=== PATIENT | female | born 1985 | race Caucasian/White ===

== ENCOUNTER → 2016-05-31 | Outpatient (CLI) | payer OTHER ==
[~2016-05-31] MED LIST: ANAPROX DS550 MG PO; ATARAX,VISTARIL50 MG PO; AUGMENTIN 875 M1 TAB PO; BACTRIM DS 8001 TA1 PO; CARBIDOPA/LEVOD1 TA1 PO; CELEXA20 MG PO; CELEXA40 MG PO; CLARITIN10 MG PO; MAXALT10 MG PO; METHOCARBAMOL750 M1 PO; MOTRIN800 MG PO; Motrin,Rufen800 MG PO; NAPROSYN500 MG PO; NKHM; Orphenadrine C100 MG PO; PREDNISONE20 M1 PO; QUETIAPINE FUMA25 MG PO; ROBAXIN750 MG PO; SEROQUEL50 MG PO; THERA TABS1 TAB PO; TOBRADEX 0.1%-0.5 ML OPH; TOPAMAX100 M1 PO; TRAMADOL HCL50 MG PO; TRAZODONE50 MG PO; TRINESSA 281 TAB PO; ULTRAM50 MG PO; VICODIN 5/500 505 MG PO; ZANTAC150 MG PO; ZOFRAN ODT4 MG SL; ZOFRAN4 MG PO
[2016-05-31 12:29] LABS: BASO % 0.3 % (0.0-1.0); EOS # 0.6 10*3/uL (0.0-0.4); HEMOGLOBIN 10.9 g/dl (12.0-16.0); IG # 0.1 10*3/uL (0.0-0.1); LYMPH # 1.8 10*3/uL (1.3-4.4); LYMPH % 12.9 % (27.0-41.0); MEAN CELL VOLUME 95.5 fl (81.0-99.0); MEAN CORPUSCULAR HGB 34.7 pg (27.0-31.0); MEAN CORPUSCULAR HGB CONC 36.3 g/dl (33.0-37.0); MEAN PLATELET VOLUME 9.4 fl (9.6-12.3); MONO # 0.9 10*3/uL (0.1-1.0); MONO % 6.4 % (3.0-9.0); NEUT # 10.3 10*3/uL (2.3-7.9); NEUT % 75.4 % (47.0-73.0); PLATELET COUNT AUTOMATED 206 10*3/uL (130-400); RED BLOOD COUNT 3.14 10*6/uL (4.10-5.10); RED CELL DISTRI WIDTH 12.8 % (0-14.5); WHITE BLOOD COUNT 13.6 10*3/uL (4.8-10.8)
[2016-06-01 08:14] LABS: HIV 1+2 AB + HIV1 P24 AG Non Reactive (Non Reactive)
== END | disposition home or self-care (01) ==
LOC: LAB 12:00
PROVIDERS: Obstetrics & Gynecology
DX: Z34.90 Encounter for supervision of normal pregnancy, unspecified, unspecified trimester (principal); Z3A.00 Weeks of gestation of pregnancy not specified

== ENCOUNTER → 2016-07-05 | Outpatient (CLI) | payer OTHER | END | disposition home or self-care (01) | LOC: US 15:57 | DX: O32.8XX0 Maternal care for other malpresentation of fetus, not applicable or unspecified (principal); Z3A.34 34 weeks gestation of pregnancy ==

== ENCOUNTER 2016-08-03 18:55 | Emergency (ER) | payer OTHER ==
[~2016-08-03] VITALS: Ht 165.1 cm; Wt 71.7 kg
[2016-08-03] MEDS ORDERED: PRENATAL1 TA3 PO (19:17)
== END 2016-08-03 20:12 | disposition left against medical advice (07) ==
LOC: ED 18:55
DX: O26.893 Other specified pregnancy related conditions, third trimester (principal); O60.03 Preterm labor without delivery, third trimester; Z3A.38 38 weeks gestation of pregnancy; F17.200 Nicotine dependence, unspecified, uncomplicated

== ENCOUNTER 2016-11-28 20:01 | Emergency (ER) | payer OTHER ==
[~2016-11-28] VITALS: Ht 165.1 cm; Wt 61.2 kg
[~2016-11-28 20:01] MED LIST changes: +PRENATAL1 TA3 PO
== END 2016-11-28 21:59 | disposition home or self-care (01) ==
LOC: ED 20:01
DX: R51 Headache (principal); F17.200 Nicotine dependence, unspecified, uncomplicated; G43.909 Migraine, unspecified, not intractable, without status migrainosus; F11.10 Opioid abuse, uncomplicated; Z79.899 Other long term (current) drug therapy

== ENCOUNTER 2020-02-14 20:01 | Emergency (ER) | payer OTHER ==
[~2020-02-14] VITALS: Ht 165.1 cm; Wt 64.9 kg
== END 2020-02-14 21:11 | disposition left against medical advice (07) ==
LOC: ED 20:01
DX: T65.91XA Toxic effect of unspecified substance, accidental (unintentional), initial encounter (principal); Z79.899 Other long term (current) drug therapy; Y92.89 Other specified places as the place of occurrence of the external cause

== ENCOUNTER 2022-06-28 13:35 | Emergency (ER) | payer MEDICAID ==
[~2022-06-28] VITALS: Ht 165.1 cm
[2022-06-28] MEDS ORDERED: AMOX-CLAV 875-1 EACH PO (16:52)
== END 2022-06-28 17:00 | disposition home or self-care (01) ==
LOC: ED 13:35
DX: H66.92 Otitis media, unspecified, left ear (principal); Z79.899 Other long term (current) drug therapy; F17.200 Nicotine dependence, unspecified, uncomplicated

== ENCOUNTER 2022-07-29 12:36 | Emergency (ER) | payer MEDICAID ==
[~2022-07-29] VITALS: Ht 165.1 cm; Wt 59.9 kg
[~2022-07-29 12:36] MED LIST changes: +AMOX-CLAV 875-1 EACH PO
[2022-07-29] MEDS ORDERED: METHOCARBAMOL500 M1 PO ×2 (14:39→14:42)
[2022-07-29] MEDS ORDERED: PREDNISONE20 M1 PO ×2 (14:39→14:42)
[2022-07-29] MEDS ORDERED: HYDROCODONE-AC1 EAC1 PO ×2 (14:39→14:42)
== END 2022-07-29 16:28 | disposition home or self-care (01) ==
LOC: ED 12:36
DX: S13.9XXA Sprain of joints and ligaments of unspecified parts of neck, initial encounter (principal); F17.200 Nicotine dependence, unspecified, uncomplicated; F11.10 Opioid abuse, uncomplicated; X50.1XXA Overexertion from prolonged static or awkward postures, initial encounter; Y93.89 Activity, other specified; Y92.89 Other specified places as the place of occurrence of the external cause; Y99.8 Other external cause status

== ENCOUNTER 2022-09-30 10:56 | Emergency (ER) | payer MEDICAID ==
[~2022-09-30] VITALS: Ht 165.1 cm; Wt 62.6 kg
[~2022-09-30 10:56] MED LIST changes: +HYDROCODONE-AC1 EAC1 PO; +METHOCARBAMOL500 M1 PO
[2022-09-30] MEDS ORDERED: PREDNISONE50 MG PO (12:09)
== END 2022-09-30 12:22 | disposition home or self-care (01) ==
LOC: ED 10:56
DX: M54.40 Lumbago with sciatica, unspecified side (principal); F17.200 Nicotine dependence, unspecified, uncomplicated

== ENCOUNTER 2022-12-10 22:33 | Emergency (ER) | payer SELFPAY ==
[~2022-12-10] VITALS: Ht 165.1 cm; Wt 63.5 kg
[~2022-12-10 22:33] MED LIST changes: +PENICILLIN VK500 MG PO; +PREDNISONE50 MG PO
== END 2022-12-11 02:06 | disposition left against medical advice (07) ==
LOC: ED 22:33
DX: K08.89 Other specified disorders of teeth and supporting structures (principal); Z98.890 Other specified postprocedural states; F11.10 Opioid abuse, uncomplicated; F17.290 Nicotine dependence, other tobacco product, uncomplicated

== ENCOUNTER 2023-01-20 22:45 | Emergency (ER) | payer MEDICAID ==
[~2023-01-20] VITALS: Ht 165.1 cm; Wt 65.3 kg
[2023-01-20] MEDS ORDERED: COLACE CLEAR50 MG PO (23:00)
[2023-01-20] MEDS ORDERED: SUBOXONE 8 MG-1 EACH SL (23:00)
[2023-01-20] MEDS ORDERED: CYCLOBENZAPRINE10 MG PO (23:01)
[2023-01-20] MEDS ORDERED: CLONIDINE HCL0.1 MG PO (23:01)
[2023-01-20 23:22] LABS: BASO # 0.1 10*3/uL (0.0-0.1); BASO % 0.7 % (0.0-1.0); EOS # 1.2 10*3/uL (0.0-0.4); EOS % 10.3 % (1.0-4.0); HEMATOCRIT 36.8 % (37.0-47.0); LYMPH # 2.9 10*3/uL (1.3-4.4); LYMPH % 25.1 % (27.0-41.0); MEAN CELL VOLUME 91.1 fl (81.0-99.0); MEAN CORPUSCULAR HGB 31.7 pg (27.0-31.0); MEAN CORPUSCULAR HGB CONC 34.8 g/dl (33.0-37.0); MEAN PLATELET VOLUME 10.2 fl (9.6-12.3); MONO # 1.2 10*3/uL (0.1-1.0); MONO % 10.1 % (3.0-9.0); NEUT # 6.3 10*3/uL (2.3-7.9); NEUT % 53.6 % (47.0-73.0); PLATELET COUNT AUTOMATED 352 10*3/uL (130-400); RED BLOOD COUNT 4.04 10*6/uL (4.10-5.10); RED CELL DISTRI WIDTH 13.1 % (0-14.5); WHITE BLOOD COUNT 11.6 10*3/uL (4.8-10.8)
[2023-01-20 23:47] LABS: ALKALINE PHOSPHATASE 79 U/L (46-116); BUN 13 mg/dl (9-23); CHLORIDE 104 mmol/L (98-107); SGPT/ALT 18 U/L (5-49)
[2023-01-21] MEDS ORDERED: OMEPRAZOLE40 MG PO (00:20)
== END 2023-01-21 00:19 | disposition left against medical advice (07) ==
LOC: ED 22:45
PROVIDERS: Internal Medicine
DX: K21.9 Gastro-esophageal reflux disease without esophagitis (principal); R07.89 Other chest pain; Z98.890 Other specified postprocedural states; F17.200 Nicotine dependence, unspecified, uncomplicated; F11.10 Opioid abuse, uncomplicated

== ENCOUNTER 2023-04-12 11:03 | Emergency (ER) | payer MEDICAID ==
[~2023-04-12] VITALS: Ht 165.1 cm; Wt 59.0 kg
[~2023-04-12 11:03] MED LIST changes: +CLONIDINE HCL0.1 MG PO; +COLACE CLEAR50 MG PO; +CYCLOBENZAPRINE10 MG PO; +OMEPRAZOLE40 MG PO; +SUBOXONE 8 MG-1 EACH SL
[2023-04-12] MEDS ORDERED: CYCLOBENZAPRINE5 M3 PO (11:22)
[2023-04-12] MEDS ORDERED: methylPREDNISolone sod succ 125 MG VIAL IM ONE (11:25)
[2023-04-12] MEDS ORDERED: Ketorolac Tromethamine 30 MG/ML VIAL IM ONE (11:25)
== END 2023-04-12 11:37 | disposition home or self-care (01) ==
LOC: ED 11:03
DX: S16.1XXA Strain of muscle, fascia and tendon at neck level, initial encounter (principal); F17.200 Nicotine dependence, unspecified, uncomplicated; F11.10 Opioid abuse, uncomplicated; Z98.890 Other specified postprocedural states; X58.XXXA Exposure to other specified factors, initial encounter; Y93.E9 Activity, other interior property and clothing maintenance; Y92.009 Unspecified place in unspecified non-institutional (private) residence as the place of occurrence of the external cause; Y99.8 Other external cause status

== ENCOUNTER → 2023-05-30 | Emergency (ER) | payer MEDICAID ==
[~2023-05-30] VITALS: Ht 165.1 cm; Wt 60.3 kg
[~2023-05-30] MED LIST changes: +CYCLOBENZAPRINE5 M3 PO; +Rabies Immune Globulin 300 UNIT/2 ML VIAL IM ONE; +Rabies Vaccine 1 ML VIAL IM ONE; +Tdap Vaccine 0.5 ML SYR (Adult Vaccine) IM ONE
== END ==
LOC: ED 10:08
DX: S81.852A Open bite, left lower leg, initial encounter (principal); F17.200 Nicotine dependence, unspecified, uncomplicated; F11.10 Opioid abuse, uncomplicated; W54.0XXA Bitten by dog, initial encounter; Y93.89 Activity, other specified; Y92.89 Other specified places as the place of occurrence of the external cause; Y99.8 Other external cause status

== ENCOUNTER 2023-06-02 16:30 | Emergency (ER) | payer MEDICAID ==
[~2023-06-02 16:30] MED LIST changes: -Rabies Immune Globulin 300 UNIT/2 ML VIAL IM ONE; -Rabies Vaccine 1 ML VIAL IM ONE; -Tdap Vaccine 0.5 ML SYR (Adult Vaccine) IM ONE
[2023-06-02] MEDS ORDERED: Rabies Vaccine 1 ML VIAL IM ONE (16:45)
== END 2023-06-02 17:22 | disposition home or self-care (01) ==
LOC: ED 16:30
DX: S81.852D Open bite, left lower leg, subsequent encounter (principal); Z23 Encounter for immunization; F17.200 Nicotine dependence, unspecified, uncomplicated; Z79.2 Long term (current) use of antibiotics; Z79.899 Other long term (current) drug therapy; W54.0XXD Bitten by dog, subsequent encounter

== ENCOUNTER 2023-06-06 17:25 | Emergency (ER) | payer MEDICAID ==
[~2023-06-06] VITALS: Ht 165.1 cm; Wt 61.2 kg
[2023-06-06] MEDS ORDERED: Rabies Vaccine 1 ML VIAL IM ONE (18:05)
== END 2023-06-06 18:22 | disposition home or self-care (01) ==
LOC: ED 17:25
DX: S81.851D Open bite, right lower leg, subsequent encounter (principal); F17.200 Nicotine dependence, unspecified, uncomplicated; F11.10 Opioid abuse, uncomplicated; W54.0XXD Bitten by dog, subsequent encounter

== ENCOUNTER 2023-07-29 21:34 | Emergency (ER) | payer MEDICAID ==
[~2023-07-29] VITALS: Ht 165.1 cm; Wt 61.2 kg
[2023-07-29] MEDS ORDERED: Dexamethasone Sodium Phospha 20 MG/5 ML VIAL IM ONE (22:30)
[2023-07-29] MEDS ORDERED: Ketorolac Tromethamine 60 MG/2 ML VIAL IM ONE (22:30)
[2023-07-30] MEDS ORDERED: CYCLOBENZAPRINE5 M3 PO (00:08)
[2023-07-30] MEDS ORDERED: MELOXICAM15 MG PO (00:08)
== END 2023-07-30 00:37 | disposition home or self-care (01) ==
LOC: ED 21:34
DX: M54.50 Low back pain, unspecified (principal); F17.200 Nicotine dependence, unspecified, uncomplicated

== ENCOUNTER 2023-11-14 22:54 | Emergency (ER) | payer MEDICAID ==
[~2023-11-14] VITALS: Ht 165.1 cm; Wt 67.1 kg
[~2023-11-14 22:54] MED LIST changes: +MELOXICAM15 MG PO
[2023-11-14] MEDS ORDERED: Ketorolac Tromethamine 60 MG/2 ML VIAL IM ONE (23:50)
[2023-11-14] MEDS ORDERED: NAPROXEN250 MG PO (23:54)
== END 2023-11-15 00:22 | disposition home or self-care (01) ==
LOC: ED 22:54
DX: M25.562 Pain in left knee (principal); M25.561 Pain in right knee; Z98.51 Tubal ligation status; F17.200 Nicotine dependence, unspecified, uncomplicated; F11.10 Opioid abuse, uncomplicated

== ENCOUNTER 2023-12-20 10:36 | Inpatient (IN) | payer MEDICAID ==
[~2023-12-20] VITALS: Ht 165.1 cm; Wt 63.5 kg
[~2023-12-20 10:36] MED LIST changes: +NAPROXEN250 MG PO
[2023-12-20 10:44] VITALS: BP 118/63
[2023-12-20] MEDS ORDERED: SODIUM CHLORIDE 0.9% 1,000 ML IV ONE (10:50)
[2023-12-20 11:15] LABS: BASO # 0.1 10*3/uL (0.0-0.1); BASO % 0.4 % (0.0-1.0); EOS % 0.2 % (1.0-4.0); LYMPH # 0.7 10*3/uL (1.3-4.4); LYMPH % 5.5 % (27.0-41.0); MEAN CELL VOLUME 92.2 fl (81.0-99.0); MEAN CORPUSCULAR HGB 30.2 pg (27.0-31.0); MEAN CORPUSCULAR HGB CONC 32.8 g/dl (33.0-37.0); MEAN PLATELET VOLUME 9.8 fl (9.6-12.3); MONO % 7.9 % (3.0-9.0); NEUT % 85.8 % (47.0-73.0); PLATELET COUNT AUTOMATED 303 10*3/uL (130-400); RED BLOOD COUNT 4.34 10*6/uL (4.10-5.10); RED CELL DISTRI WIDTH 13.1 % (0-14.5); WHITE BLOOD COUNT 12.8 10*3/uL (4.8-10.8)
[2023-12-20 11:17] LABS: BILIRUBIN 2+ (Negative); BLOOD Negative (Negative); CLARITY Turbid (Clear); GLUCOSE Negative (Negative); KETONE Negative (Negative); LEUKO ESTERASE 3+ (Negative); NITRITE Positive (Negative); SPECIFIC GRAVITY 1.015 (1.001-1.030)
[2023-12-20] MEDS ORDERED: IOHEXOL 300 MG/ML 100 ML VIAL IV ONE (11:20)
[2023-12-20 11:24] LABS: URINE AMPHETAMINES Positive (1000ng/ml); URINE BARBITURATES Negative (200ng/ml); URINE BENZODIAZEPINES Negative (200ng/ml); URINE CANNABINOIDS (THC) Negative (50ng/ml); URINE COCAINE Negative (300ng/ml); URINE METHADONE Negative (300ng/ml); URINE OPIATES Negative (300ng/ml); URINE PHENCYCLIDINE Negative (25ng/ml)
[2023-12-20 11:30] LABS: BACTERIA 1+; COLOR Red (Yellow); EPITHELIAL CELLS 31-40; MUCOUS 1+; WBC 31-40 wbc/hpf (0-5)
[2023-12-20] MEDS ORDERED: IOHEXOL 300 MG/ML 100 ML VIAL ONE (11:34)
[2023-12-20 11:35] LABS: BUN 6 mg/dl (9-23); CHLORIDE 98 mmol/L (98-107); LIPASE 24 U/L (12-53); POTASSIUM 3.4 mmol/L (3.4-5.1)
[2023-12-20 11:36] LABS: ETHYL ALCOHOL < 3.0 mg/dl (<3)
[2023-12-20] MEDS ORDERED: Ceftriaxone Sodium 1 GM/10 ML SYR IV ONE (12:50)
[2023-12-20] MEDS ORDERED: SODIUM CHLORIDE 0.9% 1,000 ML IV SCH (12:50)
[2023-12-20 13:58] VITALS: BP 100/62
[2023-12-20] MEDS ORDERED: Magnesium Hydroxide 30 ML UDC PO PRN (14:20)
[2023-12-20] MEDS ORDERED: Acetaminophen/Hydrocodone 5 MG/325 MG TABLET PO PRN (14:20)
[2023-12-20] MEDS ORDERED: ACETAMINOPHEN 325 MG TAB PO PRN (14:20)
[2023-12-20] MEDS ORDERED: Ondansetron Hydrochloride 4 MG/2 ML VIAL IV PRN (14:20)
[2023-12-20] MEDS ORDERED: BISACODYL 5 MG TAB PO PRN (14:20)
[2023-12-20] MEDS ORDERED: Nicotine 21 MG PATCH T SCH (17:19)
[2023-12-21] MEDS ORDERED: Pantoprazole Sodium 40 MG TAB PO SCH (06:00)
[2023-12-21] MEDS ORDERED: Enoxaparin Sodium 40 MG/0.4 ML SYR SC SCH (10:00)
[2023-12-21] MEDS ORDERED: Ceftriaxone Sodium 1 GM in SYRINGE INFUSION 10 ML IV SCH (13:00)
== END 2023-12-20 19:55 | disposition left against medical advice (07) | DRG 720 ==
LOC: ED 10:36 → EDHOLD 13:07
PROVIDERS: Internal Medicine; ADMIT Student in an Organized Health Care Education/Training Program; ATTEND Student in an Organized Health Care Education/Training Program
DX: A41.9 Sepsis, unspecified organism (principal); E87.1 Hypo-osmolality and hyponatremia; N12 Tubulo-interstitial nephritis, not specified as acute or chronic; F15.10 Other stimulant abuse, uncomplicated; K21.9 Gastro-esophageal reflux disease without esophagitis; F17.210 Nicotine dependence, cigarettes, uncomplicated; R80.9 Proteinuria, unspecified; R73.9 Hyperglycemia, unspecified; Z53.29 Procedure and treatment not carried out because of patient's decision for other reasons; F31.9 Bipolar disorder, unspecified; M54.50 Low back pain, unspecified; Z90.710 Acquired absence of both cervix and uterus

== ENCOUNTER 2024-01-23 22:44 | Emergency (ER) | payer MEDICAID ==
[~2024-01-23] VITALS: Ht 165.1 cm; Wt 63.5 kg
[2024-01-24] MEDS ORDERED: PAXLOVID 300-11 EAC3 PO (00:56)
== END 2024-01-24 01:10 | disposition home or self-care (01) ==
LOC: ED 22:44
DX: U07.1 COVID-19 (principal); H92.03 Otalgia, bilateral; E87.1 Hypo-osmolality and hyponatremia; F17.200 Nicotine dependence, unspecified, uncomplicated; F15.10 Other stimulant abuse, uncomplicated; F11.10 Opioid abuse, uncomplicated; Z90.710 Acquired absence of both cervix and uterus; Z98.890 Other specified postprocedural states; Z98.51 Tubal ligation status

== ENCOUNTER 2024-03-06 08:05 | Emergency (ER) | payer MEDICAID ==
[~2024-03-06] VITALS: Ht 165.1 cm; Wt 63.5 kg
[~2024-03-06 08:05] MED LIST changes: +PAXLOVID 300-11 EAC3 PO
[2024-03-06] MEDS ORDERED: Bacitracin Zinc 14 GM TUBE T ONE (08:35)
== END 2024-03-06 10:20 | disposition left against medical advice (07) ==
LOC: ED 08:05
DX: S61.412A Laceration without foreign body of left hand, initial encounter (principal); F17.200 Nicotine dependence, unspecified, uncomplicated; F11.10 Opioid abuse, uncomplicated; F15.10 Other stimulant abuse, uncomplicated; Z53.29 Procedure and treatment not carried out because of patient's decision for other reasons; Z90.710 Acquired absence of both cervix and uterus; W25.XXXA Contact with sharp glass, initial encounter; Y93.89 Activity, other specified; Y92.89 Other specified places as the place of occurrence of the external cause; Y99.8 Other external cause status

== ENCOUNTER 2024-07-08 02:28 | Emergency (ER) | payer MEDICAID ==
[~2024-07-08] VITALS: Ht 165.1 cm; Wt 67.1 kg
== END 2024-07-08 04:01 | disposition left against medical advice (07) ==
LOC: ED 02:28
DX: R51.9 Headache, unspecified (principal); K21.9 Gastro-esophageal reflux disease without esophagitis; F31.9 Bipolar disorder, unspecified; F17.210 Nicotine dependence, cigarettes, uncomplicated; Z90.710 Acquired absence of both cervix and uterus

== ENCOUNTER 2024-11-17 17:36 | Emergency (ER) | payer SELFPAY ==
[~2024-11-17] VITALS: Ht 165.1 cm; Wt 63.5 kg
[2024-11-17] MEDS ORDERED: NAPROSYN500 MG PO (18:58)
[2024-11-17] MEDS ORDERED: CLINDAMYCIN HC300 MG PO (18:58)
== END 2024-11-17 19:08 | disposition home or self-care (01) ==
LOC: ED 17:36
DX: K02.9 Dental caries, unspecified (principal); F17.200 Nicotine dependence, unspecified, uncomplicated; Z90.711 Acquired absence of uterus with remaining cervical stump